=== PATIENT | female | born 1935 | race Caucasian/White ===

== ENCOUNTER → 2018-04-07 08:49 | Outpatient (CLI) | payer MEDICARE, OTHER ==
[2016-06-19 11:01] VITALS: BMI 23.9
[~2018-04-07 08:49] MED LIST: ASPIRIN EC81 M1 PO; CALCIUM 600+D T1 TA1 PO; CELEXA40 MG PO; COSOPT EYE DROPS5 ML EACH EYE; DESERYL100 MG PO; FERROUS SULFAT325 MG PO; OMEPRAZOLE20 M1 PO; SALINE NASAL SP45 ML NASAL; TYLENOL PM1 TAB PO; ULTRAM50 MG PO; XALATAN 0.0052.5 ML EACH EYE; ZOCOR20 MG PO
== END | disposition home or self-care (01) ==
LOC: D.CT 08:49
DX: R22.2 Localized swelling, mass and lump, trunk (principal); I65.23 Occlusion and stenosis of bilateral carotid arteries

== ENCOUNTER → 2019-09-04 12:13 | Outpatient (CLI) | payer MEDICARE, OTHER ==
[2016-06-19 11:01] VITALS: BMI 23.9
== END | disposition home or self-care (01) ==
LOC: D.US 12:13
PROVIDERS: ATTEND Internal Medicine Cardiovascular Disease
DX: I65.23 Occlusion and stenosis of bilateral carotid arteries (principal)

== ENCOUNTER → 2020-02-11 09:13 | Outpatient (CLI) | payer MEDICARE, OTHER ==
[2016-06-19 11:01] VITALS: BMI 23.9
== END | disposition home or self-care (01) ==
LOC: D.CT 09:13
PROVIDERS: ATTEND Internal Medicine Cardiovascular Disease
DX: I65.23 Occlusion and stenosis of bilateral carotid arteries (principal)